=== PATIENT | female | born 1985 | race Caucasian/White ===

== ENCOUNTER 2023-11-28 16:14 | Emergency (ER) | payer OTHER, SELFPAY ==
[2023-11-28 16:16] VITALS: BP 146/95
[2023-11-28 16:42] LABS: % Basophils 0.4 % (0-2); % Eosinophils 1.1 % (0-6); % Immature Granulocytes 0.2 % (0-0.5); % Lymphocytes 39.1 % (20.5-51.1); % Monocytes 6.2 % (1.7-9.3); Absolute Eosinophils 0.1 10^3/uL (0-0.7); Absolute Lymphocytes 2.1 10^3/uL (1.2-3.4); Absolute Monocytes 0.3 10^3/uL (0.1-0.6); Absolute Neutrophils 2.8 10^3/uL (1.4-6.5); Hematocrit 41.5 % (37.0-47.0); Hemoglobin 14.6 g/dL (12.0-16.0); Mean Corp Hgb Conc. 35.2 g/dL (33.0-37.0); Mean Corpuscular Volume 105.1 fL (81.0-99.0); Mean Platelet Volume 9.5 fL (7.4-10.4); Nucleated Red Blood Cells % 0 %; Platelet Count 119 10^3/uL (130-400); Red Blood Cell Count 3.95 10^6/uL (4.20-5.40); Red Cell Dist. Width 13.5 % (11.5-14.5); White Blood Cell Count 5.3 10^3/uL (4.8-10.8)
[2023-11-28 17:07] LABS: ALT (SGPT) 108 U/L (0-35); AST (SGOT) 301 U/L (14-36); Alcohol 292 mg/dl; Alkaline Phosphatase 118 U/L (38-126); Blood Urea Nitrogen 12 mg/dl (7-17); Calcium 9.4 mg/dl (8.4-10.2); Carbon Dioxide 22 mmol/L (22-30); Chloride 98 mmol/L (98-107); Glucose 77 mg/dl (70-99); Lipase 95 U/L (23-300); Potassium 3.7 mmol/L (3.5-5.1); Sodium 141 mmol/L (135-145); Total Bilirubin 1.2 mg/dl (0.2-1.3); Total Protein 8.3 g/dl (6.3-8.2); eGFR > 60.00
[2023-11-28] MEDS: ZOFRAN ODT (ORALLY DISINTEGRATING) 4 MG PO (17:38)
[2023-11-28 17:51] VITALS: BP 118/80
--- NOTE | 2023-11-28 17:59 | ED.GENMED ---
History of Present Illness
General
Chief Complaint: Dehydration Symptoms
Source: patient
Exam Limitations: none
Time Seen by Provider: 11/28/23 17:10
Nursing documentation reviewed up to this point in time: agreed with
Travel History
Have you had any contact with someone who has COVID-19?: No
Do you have any symptoms of coronavirus? Fever > 100 degrees, chills, cough, shortness of breath, sore throat, loss of taste or smell, muscle aches, or headache?: No
History of Present Illness
History of Present Illness:
Patient presents to ED secondary to persistent vomiting with loose bowel movements over the past 6 days. Denies fever or chills. Denies abdominal pain. Denies trauma. Denies recent change in medications or diet. Denies recent change in
medications or diet. Denies sick contact. Of note, patient also is current experiencing upper respiratory symptoms, including nasal congestion and intermittent nonproductive cough. Denies recent travel. Denies dizziness or weakness. Denies loss
of appetite. Patient has been able to drink and keep some food items down, in between vomiting episodes. In addition, patient admits to drinking daily, as she describes herself as 'functional alcoholic', including alcohol intake this afternoon.
Past History
Past History
ED Past Medical History: Seizures (Alcohol withdrawal)
Social History
Alcohol: Chronic alcoholic
Personal: Single
Living: with family
Review of Systems
Review of Systems
Allergies reviewed?: Yes
All Other Systems: ROS reviewed and negative except as documented in HPI and ROS
Constitutional: Reports no symptoms; Denies fever or chills
EENT: Reports other (Nasal congestion)
Respiratory: Reports no symptoms
Cardiac: Reports no symptoms
ABD/GI: Reports nausea, vomiting and diarrhea; Denies abdominal pain
: Reports dysuria and frequency
Musculoskeletal: Reports no symptoms
Skin: Reports no symptoms
Neurological: Reports no symptoms
Phy Exam
Physical Exam
Physical Exam:
Physical Exam
General: no apparent distress, not acutely ill. afebrile
Head: nc/at. eomi
Neck: supple. no meningeal signs.
Heart: s1/s2 regular rate and rhythm, no murmur. equal radial pulses.
Lungs: no acute respiratory distress. clear bilaterally
Abdomen: normal bowel sounds. not tender.
Neuro: alert and oriented. no focal neurological deficits
Skin: petechial rash in abdomen, nontender.
Psychiatric: well kept. interactive and cooperative
Extremities: no edema. no calf tenderness.
Course
Orders/Labs/Results
Orders:
Orders
11/28/23 16:25
Alcohol Urgent
Complete Blood Count/With Diff Urgent
Comprehensive Metabolic Panel Urgent
HCG, Serum Qualitative Screen Urgent
Comment: ADD ON
Lipase Urgent
11/28/23 17:32
Ondansetron Orally Disint [Zofran Odt (Orally Disintegrating)] 4 mg PO NOW STA
11/28/23 19:22
Add On- LAB Urgent
Tests Added?: serum B-HCG, qualitative
Urinalysis Reflex To Culture Urgent
Abnormal Lab Results
11/28/23
16:25
RBC 3.95 L 10^6/uL
(4.20-5.40)
MCV 105.1 H fL
(81.0-99.0)
MCH 37.0 H pg
(27.0-31.0)
Plt Count 119 L 10^3/uL
(130-400)
AST 301 H U/L
(14-36)
ALT 108 H U/L
(0-35)
Total Protein 8.3 H g/dl
(6.3-8.2)
11/28/23 16:25
11/28/23 16:25
Vital Signs
Initial and Last Documented VS:
Initial Vital Signs
Temp Pulse Resp BP Pulse Ox
98.4 F 87 16 146/95 98
11/28/23 16:16 11/28/23 16:16 11/28/23 16:16 11/28/23 16:16 11/28/23 16:16
Last Documented Vital Signs
Temp Pulse Resp BP Pulse Ox
98.4 F 93 21 133/75 93
11/28/23 16:16 11/28/23 19:45 11/28/23 19:45 11/28/23 19:00 11/28/23 19:45
MDM/Problems Addressed
MDM/Problems Addressed:
Patient with an unremarkable workup in ED. In addition, after Zofran administration, patient is able to tolerate multiple drinks as well as sandwich, without any further vomiting episodes. Patient states that she feels 'much better', and request
to be discharged home. As such, patient will be discharged home in stable condition, with short course of Zofran, to be used as needed as an outpatient, along with PCP follow-up.
*Critical Care Note
Total Time (30-74mins, 75-104mins- exclusive of procedures): Not Applicable
ED Attending Note
-
Portions of this chart may have been created with voice recognition software.� Occasional wrong word or��sound alike� substitutions may have occurred due to the inherent limitations of voice recognition software.
Discharge Plan
Departure
Patient Disposition: Home (Routine Discharge)
Date of Disposition: 11/28/23
Time of Disposition: 21:29
Patient with high blood pressure during this ER visit?: Yes
Condition: Good
Discharge Problem:
Acute viral syndrome
Instructions: Viral Syndrome (DC)
Prescriptions:
New
ondansetron 4 mg Tablet,Disintegrating
4 mg PO TIDPRN PRN (Reason: nausea/vomiting) Qty: 12 0RF
Referrals:
Suzanne Addison MD [Active] -
NONE,* [Family Provider] -
Activity Restrictions/Additional Instructions:
As discussed, please follow-up with your primary care physician and/or referred to GI physician with any further concerns. Your prescription has been sent electronically to [facility] pharmacy in [place].
Interventions
Interventions:
*Risk Screen - Suicide Last Done: 11/28/23 16:16
*General Assessment Last Done: 11/28/23 16:16
*Neglect/Abuse Screening Last Done: 11/28/23 16:16
ED- Fall Risk Assessment Last Done: 11/28/23 17:30
*ED COVID-19 Vaccine History Last Done: 11/28/23 16:16
ED- Cardiac Assessment Last Done: 11/28/23 17:30
ED- Neurological Assessment Last Done: 11/28/23 17:30
ED- Pulmonary Assessment Last Done: 11/28/23 17:30
Discharge Date and Time
Print Language: NORWEGIAN
[2023-11-28 18:00] VITALS: BP 113/78
[2023-11-28 19:00] VITALS: BP 133/75
[2023-11-28 19:50] LABS: HCG, Serum Qualitative Screen Negative
[2023-11-28 20:00] VITALS: BP 120/78
[2023-11-28 21:00] VITALS: BP 99/79
== END 2023-11-28 22:05 | disposition home or self-care (01) ==
LOC: EMR 16:14
PROVIDERS: Emergency Medicine; EMERGENCY PHYSICIAN Emergency Medicine
DX: B34.9 Viral infection, unspecified (principal); R03.0 Elevated blood-pressure reading, without diagnosis of hypertension
CPT/HCPCS: 99283; 80053; 82077; 83690; 84703; 85025

== ENCOUNTER 2023-12-08 08:45 | Emergency (ER) | payer OTHER, SELFPAY ==
[2023-12-08 09:04] VITALS: BP 150/100
--- NOTE | 2023-12-08 09:39 | ED.GENMED ---
History of Present Illness
General
Chief Complaint: Abdominal Symptoms
Source: patient and records
Exam Limitations: none
Time Seen by Provider: 12/08/23 09:10
Nursing documentation reviewed up to this point in time: agreed with
Travel History
Have you had any contact with someone who has COVID-19?: No
Do you have any symptoms of coronavirus? Fever > 100 degrees, chills, cough, shortness of breath, sore throat, loss of taste or smell, muscle aches, or headache?: No
History of Present Illness
History of Present Illness:
38-year-old female with a past medical history of alcohol abuse who presents to the emergency department for evaluation she says of nausea and vomiting although she is also requesting evaluation for right lower molar pain and 'I am sure that I have
a UTI.' Patient is obviously intoxicated and admits that she has been drinking today. She has flights of ideas and is behaving inappropriately. She tells me 'I am a horrible alcoholic.' She says that 'I am constantly vomiting all the time' while
at the same time taking large drinks from a Gatorade bottle. On further questioning about her GI symptoms she denies any abdominal pain, denies any diarrhea to me other was here last week with reported diarrhea and viral syndrome. No fever. She
is also requesting evaluation for UTI she says she has had some dysuria for the past few days. No flank pain. No fevers as above. She says that she has right lower molar pain and that she has had a 'for a while.' She cannot recall any dental
trauma. She has not had any facial swelling or redness. She says that it has been quite sometime since she seen a dentist. Finally patient says that she feels depressed intermittently throughout my assessment. She vehemently denies any suicidal
ideation or homicidal ideation�'I do not do that stuff.' She expressed some interest in alcohol rehab.
Past History
Past History
ED Past Medical History: Seizures (Alcohol withdrawal)
Social History
Alcohol: Chronic alcoholic
Personal: Single
Living: with family
Review of Systems
Review of Systems
All Other Systems: ROS reviewed and negative except as documented in HPI and ROS
Constitutional: Denies fever or chills
EENT: Reports other (Dental pain); Denies sore throat or runny nose
Respiratory: Denies cough or trouble breathing
Cardiac: Denies chest pain, diaphoresis or palpitations
ABD/GI: Reports nausea and vomiting; Denies abdominal pain or diarrhea
: Reports dysuria; Denies frequency or flank pain
Musculoskeletal: Denies neck pain or back pain
Neurological: Denies headache, weakness or numbness
Phy Exam
Physical Exam
Physical Exam:
General: Awake, alert, visibly intoxicated having flight of ideas and behaving inappropriately
Head: Normocephalic, atraumatic
Eyes: Conjunctiva normal, sclera anicteric
Throat: Airway intact, mucous membranes slightly dry; she has generally good dentition, she has no swelling, some tenderness to percussion of tooth #31 but no fractures noted, no caries
Neck: Trachea midline, supple without meningismus
Lungs: Clear to auscultation bilaterally, no wheezing, rales, rhonchi
Heart: Tachycardia with regular rhythm, no murmurs, gallops, or rubs
Abd: Soft, non distended, nontender
Neuro: Cranial nerves grossly intact, speech fluid
Skin: no rash
Extremities: Atraumatic, warm well-perfused
Scores
Heart Failure Risk
Heart Failure Risk Score: Not Applicable
Heart Score for Chest Pain Patients
STEMI patient?: Not applicable
Withdrawal Assessment of Alcohol
Withdrawal Assessment Completed?: Not applicable
Course
Orders/Labs/Results
Orders:
Orders
12/08/23 09:11
Test Result ONCE
12/08/23 09:31
Acetaminophen Urgent
Comment: ADD ON
Alcohol Urgent
Complete Blood Count/With Diff Urgent
Comprehensive Metabolic Panel Urgent
HCG, Serum Qualitative Screen Urgent
Lipase Urgent
Salicylate Urgent
Urinalysis Reflex To Culture Urgent
Date Specimen was Collected: 12/08/23
Time Specimen was Collected: 09:31
Urine Drug Abuse Screen Urgent
Date Specimen was Collected: 12/08/23
Time Specimen was Collected: 09:31
Urine Microscopic Reflex Cult Urgent
Urine Culture Urgent
DINA Source: U
Specimen Description:
Date Specimen was Collected: 12/08/23
Time Specimen was Collected: :
12/08/23 09:51
Crisis Consult Routine
Reason for Consult: depression
12/08/23 10:00
0.9% Sodium Chloride 1000 ml [Nss] 1,000 ml Mvi, Adult [Multivitamin] 10 ml Thiamine Injection 100 mg IV 150 mls/hr
12/08/23 10:32
Add On- LAB Urgent
Tests Added?: UDS
Add On- LAB Urgent
Tests Added?: acetaminophen, alcohol
12/08/23 10:33
Add On- LAB Urgent
Tests Added?: salicylate
12/08/23 10:59
CefTRIAXone [Rocephin] 1,000 mg IV NOW STA
Abnormal Lab Results
12/08/23
09:31
RBC 3.53 L 10^6/uL
(4.20-5.40)
MCV 105.4 H fL
(81.0-99.0)
MCH 38.2 H pg
(27.0-31.0)
RDW 14.6 H %
(11.5-14.5)
Immature Gran % 0.6 H %
(0-0.5)
Monocytes % 11.2 H %
(1.7-9.3)
Glucose 115 H mg/dl
(70-99)
AST 261 H U/L
(14-36)
ALT 121 H U/L
(0-35)
Urine Ketones 2+ A
(Negative)
Ur Occult Blood Reflex 1+ A
(Negative)
Urine Bilirubin 1+ A
(Negative)
Leukocyte Esterase Rfl Trace A
(Negative)
Urine RBC 3-6 A /HPF
(0-2)
Urine WBC (Reflex) 16-20 A /HPF
(0-5)
Urine Bacteria (Reflex) Few A
(Negative)
Salicylates < 1.0 L mg/dl
(2.0-20.0)
Acetaminophen < 10 L ug/ml
(10-30)
12/08/23 09:31
12/08/23 09:31
Vital Signs
Initial and Last Documented VS:
Initial Vital Signs
Temp Pulse Resp BP Pulse Ox
36.8 C 120 16 150/100 98
12/08/23 09:04 12/08/23 09:04 12/08/23 09:04 12/08/23 09:04 12/08/23 09:04
Last Documented Vital Signs
Temp Pulse Resp BP Pulse Ox
36.8 C 120 16 150/100 98
12/08/23 09:04 12/08/23 09:04 12/08/23 09:04 12/08/23 09:04 12/08/23 09:04
MDM/Problems Addressed
Differential Diagnosis Includes:
Dental pain: Dental infection, cavity, TMJ
Urinary symptoms: UTI, hyperglycemia, interstitial cystitis
Nausea/vomiting: Alcoholic gastritis, pancreatitis, viral syndrome
MDM/Problems Addressed:
38-year-old female with history of alcohol abuse presents visibly intoxicated with multiple reported complaints. She is tachycardic and hypertensive but vitals otherwise normal. Her physical exam is as above.
Regarding dental complaint: Suspect likely mild dental infection as it has been ongoing for the past few days she has no visible swelling or anything to suggest serious abscess. Can start patient on oral antibiotic and have her follow-up with a
dentist outpatient. No clear indication for emergent imaging based on her history and exam.
Regarding her urinary symptoms: Accu-Chek normal. Symptoms seem consistent with urinary tract infection. Will send a urinalysis.
Regarding nausea/vomiting: Suspect likely alcohol related she is a daily drinker continues to drink heavily including today. She has no abdominal tenderness and no report of abdominal pain no indication for emergent abdominal imaging. Will check
labs including CBC and CMP, lipase. Will check an alcohol level. Will check an hCG. While she reports significant nausea and vomiting she is actively taking p.o. very frequently throughout my assessment will continue to monitor but hold on
antiemetic for now. She does appear somewhat dry will provide fluids.
Regarding alcohol abuse: Will check an alcohol level and UDS. She does report some associated depression but denies suicidal or homicidal ideation. Will discuss case with crisis and [facility] for assessment.
Initial labs reviewed: CBC shows no clinically significant abnormalities, CMP significant for mildly elevated LFTs with AST greater than ALT suspect alcohol related. hCG is negative. Lipase is normal. Her urinalysis appears positive for infection
with bacteria and pyuria in the setting of urinary symptoms. Will treat with Rocephin. Awaiting results of her alcohol level. Crisis did assess patient she also reported to them that she is not suicidal does not feel she needs inpatient
psychiatric treatment and I agree based on my initial assessment. We did speak with [facility] for assessment: they are working towards inpatient rehab placement.
Chronic conditions affecting care:
Alcohol abuse
Acute Exacerbation and/or Progression of Chronic Illness:
Acute hypertensive
Acute Exacerbation and/or Progression of Chronic Illness: HTN
*Pulse Oximetry
Patient hypoxic: no
*Critical Care Note
Total Time (30-74mins, 75-104mins- exclusive of procedures): Not Applicable
Data Reviewed
Review of Other/Old Records Reveals: Labs and Records
Source: patient and records
Further Testing Considered But Not Given:
Considered CT of the face for dental complaint as above�in my judgment no clear indication for emergent imaging
Considered CT of the abdomen pelvis for nausea/vomiting but without abdominal pain or tenderness in my judgment no indication at this point, suspect symptoms likely alcohol related
Patient Management
Social determinants of health affecting care: Living situation and Substance abuse
Discussion with other providers: Other (Discussed with our crisis team as well as [facility])
ED Attending Note
-
Portions of this chart may have been created with voice recognition software.� Occasional wrong word or��sound alike� substitutions may have occurred due to the inherent limitations of voice recognition software.
Discharge Plan
Departure
Prescriptions:
No Action
ondansetron 4 mg Tablet,Disintegrating
4 mg PO TIDPRN PRN (Reason: nausea/vomiting) Qty: 12 0RF
Referrals:
UNKNOWN,NO INTERVIEW [Family Provider] -
Interventions
Interventions:
*Risk Screen - Suicide Last Done: 12/08/23 09:46
*General Assessment Last Done: 12/08/23 09:46
*Neglect/Abuse Screening Last Done: 12/08/23 09:46
ED- Fall Risk Assessment Last Done: 12/08/23 09:46
*ED COVID-19 Vaccine History Last Done: 12/08/23 09:04
JL-Npcodu-Olcrozmizc Assessment Last Done: 12/08/23 09:46
Discharge Date and Time
Print Language: BENINESE
[2023-12-08 09:43] LABS: % Basophils 0.6 % (0-2); % Eosinophils 0.2 % (0-6); % Immature Granulocytes 0.6 % (0-0.5); % Lymphocytes 41.9 % (20.5-51.1); % Monocytes 11.2 % (1.7-9.3); % Neutrophils 45.5 % (42.2-75.2); Absolute Lymphocytes 2.2 10^3/uL (1.2-3.4); Absolute Monocytes 0.6 10^3/uL (0.1-0.6); Absolute Neutrophils 2.4 10^3/uL (1.4-6.5); Hematocrit 37.2 % (37.0-47.0); Hemoglobin 13.5 g/dL (12.0-16.0); Mean Corp Hgb Conc. 36.3 g/dL (33.0-37.0); Mean Corpuscular Hgb 38.2 pg (27.0-31.0); Mean Corpuscular Volume 105.4 fL (81.0-99.0); Mean Platelet Volume 8.5 fL (7.4-10.4); Nucleated Red Blood Cells % 0 %; Platelet Count 181 10^3/uL (130-400); Red Blood Cell Count 3.53 10^6/uL (4.20-5.40); Red Cell Dist. Width 14.6 % (11.5-14.5); White Blood Cell Count 5.4 10^3/uL (4.8-10.8)
[2023-12-08 09:50] LABS: Urine Albumin Trace (Neg - Trace); Urine Bilirubin 1+ (Negative); Urine Character Clear (Clear); Urine Color Yellow; Urine Glucose Negative (Negative); Urine Ketone 2+ (Negative); Urine Leukocyte Trace (Negative); Urine Nitrite Negative (Negative); Urine Occult Blood 1+ (Negative); Urine Specific Gravity 1.025 (<1.030); Urine Urobilinogen Negative (Neg - 1+)
[2023-12-08 09:59] LABS: HCG, Serum Qualitative Screen Negative
[2023-12-08 10:00] LABS: ALT (SGPT) 121 U/L (0-35); AST (SGOT) 261 U/L (14-36); Albumin 4.3 g/dl (3.5-5.0); Alkaline Phosphatase 105 U/L (38-126); Blood Urea Nitrogen 12 mg/dl (7-17); Calcium 8.5 mg/dl (8.4-10.2); Carbon Dioxide 22 mmol/L (22-30); Chloride 104 mmol/L (98-107); Glucose 115 mg/dl (70-99); Potassium 3.9 mmol/L (3.5-5.1); Sodium 143 mmol/L (135-145); Total Bilirubin 0.4 mg/dl (0.2-1.3); Total Protein 7.1 g/dl (6.3-8.2); eGFR > 60.00
[2023-12-08] MEDS: MULTIVITAMIN 1011 MG IV (10:16)
[2023-12-08] MEDS: MULTIVITAMIN 1011 ML IV (10:16)
[2023-12-08 10:57] LABS: Acetaminophen < 10 ug/ml (10-30); Lipase 133 U/L (23-300); Salicylate < 1.0 mg/dl (2.0-20.0); Urine Calcium Oxalate Crystals Present; Urine Squamous Cell 16-20 /LPF (Few); Urine White Cell 16-20 /HPF (0-5)
[2023-12-08 10:58] LABS: Urine Bacteria Few (Negative)
[2023-12-08 11:16] LABS: Amphetamines Negative (Negative); Barbiturates Negative (Negative); Benzodiazepines Negative (Negative); Buprenorphine Negative (Negative); Cocaine Negative (Negative); Marijuana Negative (Negative); Methadone Negative (Negative); Methamphetamines Negative (Negative); Opiates Negative (Negative); Phencyclidine Negative (Negative); Tricyclic Antidepressants Negative (Negative)
[2023-12-08] MEDS: ROCEPHIN 1000 MG IV (11:34)
[2023-12-08 11:46] LABS: Alcohol 482 mg/dl
[2023-12-08 14:52] VITALS: BP 104/59
== END 2023-12-08 18:18 ==
LOC: EMR 08:45
PROVIDERS: EMERGENCY PHYSICIAN Emergency Medicine
DX: F10.120 Alcohol abuse with intoxication, uncomplicated (principal); N39.0 Urinary tract infection, site not specified; K08.89 Other specified disorders of teeth and supporting structures; I10 Essential (primary) hypertension
CPT/HCPCS: 99284; 96365; 96366 ×7; 96375; 80053; 80143; 80179; 80306; 81003; 81015; 82077; 83690; 84703; 85025; 87086